=== PATIENT | female | born 1995 | race Hispanic/Latino ===

== ENCOUNTER 2024-06-11 22:35 | Emergency (ER) | payer BC ==
[~2024-06-11] VITALS: Ht 167.6 cm; Wt 2.4 kg
[2024-06-11 23:52] LABS: BASOPHILS # (AUTO) 0.02 K/uL (0.00-0.20); BASOPHILS % (AUTO) 0.2 % (0.0-5.0); EOSINOPHILS # (AUTO) 0.12 K/uL (0.00-0.70); EOSINOPHILS % (AUTO) 1.5 % (0.0-8.0); HEMATOCRIT 35.5 % (36-48); IMMATURE GRANULOCYTE ABSOLUTE 0.02 K/uL (0-1); LYMPHOCYTES # (AUTO) 1.9 K/uL (1.0-4.8); LYMPHOCYTES % (AUTO) 23.7 % (21.0-51.0); MEAN CORPUSCULAR HEMOGLOBIN 29.4 pg (27.0-33.0); MEAN CORPUSCULAR HGB CONC 32.4 g/dL (32.0-36.0); MEAN CORPUSCULAR VOLUME 90.8 fL (79-99); MONOCYTES # (AUTO) 0.5 K/uL (0.1-1.0); MONOCYTES % (AUTO) 6.2 % (3.0-13.0); NEUTROPHILS # (AUTO) 5.6 K/uL (1.8-7.7); NEUTROPHILS % (AUTO) 68.2 % (40.0-77.0); PLATELET COUNT (AUTO) 270 K/uL (130-400); RED BLOOD CELL COUNT(AUTO) 3.91 MIL/uL (4.00-5.50); RED CELL DISTRIBUTION WIDTH 13.4 % (11.0-15.5); WHITE BLOOD COUNT (AUTO) 8.2 K/uL (4.8-10.8)
[2024-06-12 00:01] LABS: CREATININE 0.8 mg/dL (0.5-1.0); POTASSIUM 3.4 mmol/L (3.5-5.1)
[2024-06-12 00:06] LABS: MAGNESIUM 1.9 mg/dL (1.80-2.40)
[2024-06-12] MEDS: hydrOXYzine 25 MG TABLET PO ONE (00:16)
[2024-06-12] MEDS: 0.9%NACL 1000ML 1,000 ML IV ONE (00:17)
[2024-06-12] MEDS: PoTASSium BIcarbonate/CIT AC 25 MEQ TABLET.EFF PO ONE (00:45)
[2024-06-12] MEDS ORDERED: HYDR-3421 PO (02:13)
--- NOTE | 2024-06-12 02:14 | ERN ---
ED Note History of Present Illness Stated Complaint: PALPITATIONS Chief Complaint: Rapid Heart Rate Time Seen by MD: 22:39 Time Seen by Midlevel: 22:39 Dictation: The patient is a 29-year-old female with no medical history who presents to the emergency department complaints palpitations. Patient reports he has been getting palpitations steady for a year. Was seen at another hospital where she had cardiac monitoring but showed no pathology. Patient denies any chest pain or shortness of breath. Reports some anxiety. No other complaints reported. Allergies: Coded Allergies: No Known Drug Intolerances (Unverified Allergy, Unknown, 06/11/24) Home Meds Active Scripts Hydroxyzine HCl (Hydroxyzine HCl) 25 Mg Tablet, 1 TAB PO TID for anxiety for 10 Days, #30 TAB 0 Refills Prov:JUSTINE GOMES SOCIAL PSYCHOLOGIST 06/12/24 Past Medical History Past Medical History: No Pertinent History Surgical History: None RN Note Reviewed/Agreed w/PFSH: Yes Review of System Dictation Constitutional: Negative for fever,chills, and weight loss Eyes: Negative for injury, pain,redness, and discharge ENT: Negative for injury,pain or swelling Cardiovascular: Negative for chest pain, and edema positive for palpitations Respiratory: Negative for shortness of breath, cough, and wheezing, Abdomen/GI: Negative for abdominal pain, nausea, vomiting, diarrhea, and constipation Back: Negative for injury and pain : Negative for injury, bleeding and discharge MS/Extremity: Negative for injury and deformity Skin: Negative for rash, and discoloration Neuro: Negative for headache, weakness, numbness, tingling, and seizure Psych: Negative for suicide ideation, homicidal ideation, and hallucinations Initial Vital Sign VS Vital Signs Date Time Temp Pulse Resp B/P (MAP) Pulse Ox O2 Delivery O2 Flow Rate FiO2 06/11/24 22:39 98.4 107 18 141/93 97 Physical Exam Dictation Vital Signs reviewed General Appearance: Alert, oriented x 3, no acute distress, well developed, nourished. Head and Face: non-traumatic. Eyes: PERRL, pink conjunctivas, eyelid no trauma, anterior chamber with arcus senilis. Ears: Pinnas intact and no signs of trauma or erythema ear canals clear and no discharge TM no erythema Nose: No discharge, no bleeding. Oropharynx: Mouth normal, tongue pink. pharynx clear,no erythema, tonsils no exudates, no abscesses noted, mucous membrane moist Neck: Supple, non-tender, no thyromegaly, no masses, no JVD, no bruits Breast:Deferred Chest:No tenderness, no crepitus, no paradoxical movement, no retractions Lungs:Clear, well-ventilated, symmetric, no rales, no wheezing, no rhonchi, no stridor, good breath sounds bilaterally Heart: Regular rate, regular rhythm, no murmur, no gallops Vascular: no peripheral edema, Abdomen: Soft, positive bowel sounds, nondistended, no guarding, nontender, no rebound, no masses no hepatomegaly, no splenomegaly, no Amaral's sign, no hernias. Rectal: Deferred Genital: Deferred Neurological: Normal speech, motor function intact, sensory function intact Musculoskeletal: Neck nontender, full range of motion, back nontender, full range of motion, Extremities: nontender, full range of motion Skin: Color pink, dry, no turgor, no rash, no lacerations, no abrasions, no co ntusions. Lymphatic: Deferred Results (Laboratory/Radiology) Laboratory/Radiology Laboratory Tests Test 06/11/24 23:27 White Blood Count 8.2 K/uL (4.8-10.8) Red Blood Count 3.91 MIL/uL (4.00-5.50) L Hemoglobin 11.5 g/dL (12.0-16.0) L Hematocrit 35.5 % (36-48) L Mean Corpuscular Volume 90.8 fL (79-99) Mean Corpuscular Hemoglobin 29.4 pg (27.0-33.0) Mean Corpuscular Hemoglobin Concent 32.4 g/dL (32.0-36.0) Red Cell Distribution Width 13.4 % (11.0-15.5) Platelet Count 270 K/uL (130-400) Mean Platelet Volume 9.9 fL (7.5-10.5) Immature Granulocyte % (Auto) 0.2 % (0-1) Neutrophils (%) (Auto) 68.2 % (40.0-77.0) Lymphocytes (%) (Auto) 23.7 % (21.0-51.0) Monocytes (%) (Auto) 6.2 % (3.0-13.0) Eosinophils (%) (Auto) 1.5 % (0.0-8.0) Basophils (%) (Auto) 0.2 % (0.0-5.0) Neutrophils # (Auto) 5.6 K/uL (1.8-7.7) Lymphocytes # (Auto) 1.9 K/uL (1.0-4.8) Monocytes # (Auto) 0.5 K/uL (0.1-1.0) Eosinophils # (Auto) 0.12 K/uL (0.00-0.70) Basophils # (Auto) 0.02 K/uL (0.00-0.20) Absolute Immature Granulocyte (auto 0.02 K/uL (0-1) Nucleated Red Blood Cells 0.0 % (0.0-0.19) Sodium Level 142 mmol/L (136-145) Potassium Level 3.4 mmol/L (3.5-5.1) L Chloride Level 104 mmol/L (101-111) Carbon Dioxide Level 31 mmol/L (21-32) Blood Urea Nitrogen 8 mg/dL (7-18) Creatinine 0.8 mg/dL (0.5-1.0) Glomerular Filtration Rate Calc 102 mL/min (>90) Random Glucose 102 mg/dL (70-105) Total Calcium 8.7 mg/dL (8.5-10.1) Magnesium Level 1.90 mg/dL (1.80-2.40) Total Creatine Kinase 56 U/L (21-232) Troponin I High Sensitivity 35 ng/L (4-50) Labs Reviewed?: Yes EKG: (+) rhythm (Sinus rhythm) EKG Comment: Date:06/11/2024 Time:2244 Ventricular rate:97 [place] interval:139 QRS duration:85 QT/QTc:335 EKG interpretation: Sinus rhythm Reviewed by ED Attending no STEMI ED Course ED Course Orders Procedure Category Date Status Time Cbc With Differential LAB 06/11/24 Complete 22:54 Chest 1vw RAD 06/11/24 Taken 22:54 12 Lead Ekg Tracing- EKG 06/11/24 Logged Technical 22:54 0.9%Nacl 1000ml (Ns PHA 06/11/24 Complete 1000ml) 23:00 Magnesium LAB 06/11/24 Complete 22:54 Creatine Kinase, Total LAB 06/11/24 Complete 22:54 Troponin I High LAB 06/11/24 Complete Sensitivity 22:54 Urinalysis Profile LAB 06/11/24 Logged 22:54 Basic Metabolic Panel LAB 06/11/24 Complete 22:54 Drug Screen Urine LAB 06/11/24 Logged 22:54 ,Urine Test LAB 06/11/24 Logged 22:54 Hydroxyzine 25mg Tab PHA 06/11/24 Complete (Atarax 25mg Tab) 23:00 Potassium Bicarb/Cit PHA 06/12/24 Complete Ac 25meq (K-Lyte Ta 00:30 Current Medications Medications (Trade) Dose Ordered Sig/Josue Route PRN Reason Start Time Stop Time Status Last Admin Dose Admin Hydroxyzine HCl (ATArax 25MG TAB) 25 mg ONCE ONCE PO 06/11/24 23:00 06/11/24 23:01 DC 06/12/24 00:16 Potassium Bicarbonate (K-Lyte Tablet Eff 25 Meq Tablet.eff) 25 meq ONCE ONCE PO 06/12/24 00:30 06/12/24 00:31 DC 06/12/24 00:45 Sodium Chloride 1,000 ml @ 0 mls/hr ONCE ONCE IV 06/11/24 23:00 06/11/24 23:01 DC 06/12/24 00:17 Vital Signs Date Time Temp Pulse Resp B/P (MAP) Pulse Ox O2 Delivery O2 Flow Rate FiO2 06/11/24 22:39 98.4 107 18 141/93 97 Medical Decision Making MDM The patient is a 29-year-old female with no medical history who presents to the emergency department complaints palpitations. Patient reports he has been getting palpitations steady for a year. Was seen at another hospital where she had cardiac monitoring but showed no pathology. Patient denies any chest pain or shortness of breath. Reports some anxiety. No other complaints reported. CBC showed no leukocytosis, mild normocytic anemia, chemistry showed mild hy pokalemia, negative troponin, normal renal function, EKGs sinus rhythm no arrhythmias. Patient in no acute distress will be discharged to follow up with PCP. Differential diagnosis: Tachyarrhythmia, dehydration, anxiety, ACS Need for hospitalization: Patient does not meet criteria for hospitalization. There are no social concerns with this patient. DX & DISP Disposition: Discharge Departure Impression: Primary Impression: Palpitations Additional Impressions: Anxiety, Anemia, Hypokalemia Condition: Stable Scripts Hydroxyzine HCl (Hydroxyzine HCl) 25 Mg Tablet 1 TAB PO TID for anxiety for 10 Days, #30 TAB 0 Refills Prov: JUSTINE GOMES 06/12/24 Additional Instructions: FOLLOW-UP WITH PRIMARY CARE PROVIDER IN 1 TO 2 DAYS. TAKE MEDICATIONS DIRECTED HERE IN THE EMERGENCY ROOM. OKAY TO CONTINUE HOME MEDICATIONS UNLESS OTHERWISE DISCUSSED DURING YOUR VISIT IN THE EMERGENCY ROOM TODAY. RETURN TO YOUR NEAREST EMERGENCY ROOM IF SYMPTOMS WORSEN OR IF THERE IS NO IMPROVEMENT. CALL 911 IF YOU NEED IMMEDIATE ASSISTANCE. TAKE TYLENOL OR MOTRIN [id number] NEEDED AND IF NO CONTRAINDICATIONS ARE PRESENT. INCREASE ORAL HYDRATION. A WOUND CULTURE OR URINE CULTURE WAS ORDERED HERE IN THE EMERGENCY ROOM DEPARTMENT PLEASE FOLLOW-UP WITH PRIMARY CARE PROVIDER AND ADVISE THEM TO GET REPEAT PORTS FROM OUR FACILITY. IF YOU HAD ANY WAYNE WRAP/SPLINTS THAT WERE APPLIED HERE, PLEASE DO NOT REMOVE THEM UNTIL YOU SEE YOUR PRIMARY CARE OR SPECIALTY. Referrals: SELF,REFERRAL (PCP) Time of Disposition: 02:12 I have reviewed the case, and I agree with, Diagnosis and Plan JUSTINE GOMES Jun 12, 2024 02:14
[2024-06-12 02:19] VITALS: BP 125/66; PULSE 90; RESP 18; TEMP 98.8; O2SAT 99
--- NOTE | 2024-06-12 07:46 | EKG ---
[facility] Test Date: 2024-06-11 Test Time: 22:44:25 Pat Name: ROCAEL GARCIA Department: [facility] Room: Gender: F Manager Marketing Communications: [id number] : 1995 Requested By: JUSTINE GOMES Order Number: [id number] Reading MD: Tisha Guillen Measurements Intervals [place] Rate: 97 P: 48 FL: 139 QRS: 30 QRSD: 85 T: 27 QT: 335 QTc: 427 Interpretive Statements Sinus rhythm No previous ECG available for comparison Electronically Signed On 06-12-2024 17:03:10 SPINE SPECIALIST by Tisha Guillen Please click the below link to view image of tracing.
--- NOTE | 2024-06-12 12:57 | HMCIMG ---
CHEST 1VW HISTORY: Chest pain COMPARISON: None FINDINGS: A frontal projection of the chest was obtained. No acute pulmonary infiltrates is seen. The heart is borderline enlarged. Prominent interstitial markings are seen. No evidence of aortic calcification is seen. IMPRESSION: 1. No acute pulmonary infiltrate is seen.
== END 2024-06-12 02:29 | disposition home or self-care (01) ==
LOC: EDH 22:35
DX: F41.9 Anxiety disorder, unspecified (principal); R00.2 Palpitations; E87.6 Hypokalemia; D64.9 Anemia, unspecified
CPT/HCPCS: 99284; 71045; 82550; 83735; 84484; 80048; 85025; 36415; 93005; 96360; J7030

== ENCOUNTER 2025-03-29 13:40 | Emergency (ER) | payer BC ==
[~2025-03-29] VITALS: Ht 167.6 cm; Wt 147.9 kg
[~2025-03-29 13:40] MED LIST: HYDR-3421 PO
[2025-03-29 13:45] VITALS: BP 146/91; PULSE 139; RESP 18; TEMP 98.2
--- NOTE | 2025-03-29 13:48 | NUR ---
DOG BITE @ [address] [place] [address], [place] [place] [address], PT REQUESTING NO POLICE REPORT
--- NOTE | 2025-03-29 13:54 | NUR ---
CLLED [place] [employer] AND SPOKE TO KATHY, TOOK COMPLAIN AND STATES WILL SEND AN OFFICER HERE BUT MAY TAKE A LITTLE LONGER BECAUSE THERE IS SHIFT CHANGE
--- NOTE | 2025-03-29 14:08 | ERN ---
General Chief Complaint: Animal Bite Stated Complaint: DOG BITE Time Seen by MD: 13:46 Source: patient History of Present Illness Initial Comments PATIENT IS A 30-YEAR-OLD FEMALE COMING IN COMPLAINING OF ANIMAL BITE TO THE RIGHT HAND. PER PATIENT SHE WAS BIT BY A STRAY IN HER RIGHT HAND MULTIPLE PUNCTURE WOUNDS WHAT RIGHT HAND ARE PRESENT. Allergies: Coded Allergies: No Known Drug Allergies (Unverified Allergy, Unknown, 03/29/25) No Known Drug Intolerances (Unverified Allergy, Unknown, 06/11/24) Home Meds Active Scripts Hydroxyzine HCl (Hydroxyzine HCl) 25 Mg Tablet, 1 TAB PO TID for anxiety for 10 Days, #30 TAB 0 Refills Prov:JUSTINE GOMES COMPRESSOR STATION OPERATOR 06/12/24 Past Medical History Past Medical History: Anxiety Past Surgical History: None ROS Dictation CONSTITUTIONAL: NO CHILLS, NO FEVER, NO WEAKNESS, NO DIAPHORESIS, NO MALAISE. HEAD/FACE: NO SIGNS OF TRAUMA. EENT: NO EYE PAIN, NO BLURRED VISION, NO TEARING, NO DOUBLE VISION, NO EAR PAIN, NO EAR DISCHARGE, NO NOSE PAIN, NO NASAL CONGESTION, NO THROAT PAIN, NO THROAT SWELLING, NO MOUTH PAIN. RESPIRATORY: NO COUGH, NO ORTHOPNEA, NO SOB, NO STRIDOR, NO WHEEZING. CARDIOVASCULAR: NO CHEST PAIN, NO EDEMA, NO PALPITATIONS, NO SYNCOPE. GASTROINTESTINAL/ABDOMINAL: NO ABDOMINAL PAIN, NO CONSTIPATION, NO DIARRHEA, NO NAUSEA, NO VOMITING. GENITOURINARY: NO ABNORMAL DISCHARGE, NO DYSURIA, NO FREQUENT URINATION, NO HEMATURIA. NO COMPLAINTS OF PAIN IN THE GENITALS. MUSCULOSKELETAL: NO BACK PAIN, NO GOUT, NO JOINT PAIN, NO JOINT SWELLING, NO MUSCLE PAIN, NO MUSCLE STIFFNESS, NO NECK PAIN. INTEGUMENTARY: NO CHANGE IN COLOR, NO CHANGE IN HAIR/NAILS, NO DRYNESS, LESION, NO LUMPS, NO RASH. NEUROLOGICAL/PSYCH: NO ANXIETY, NOT DEPRESSED, NO EMOTIONAL PROBLEM, NO HEADACHE, NO NUMBNESS, NO PRE-EXISTING DEFICIT, NO HISTORY OF SEIZURES, NO TREMORS, NO WEAKNESS. HEMATOLOGIC/LYMPHATIC: NOT ANEMIC, NO HISTORY OF BLOOD CLOTS, NO APPARENT BLEEDING, NO BRUISING, GLANDS NOT SWOLLEN. ALL SYSTEMS NEGATIVE, EXCEPT NOTED. Physical Exam Physical Exam Dictation VITAL SIGNS: REVIEWED. GENERAL APPEARANCE: ALERT, ORIENTED X3, NO ACUTE DISTRESS, OBESE. HEAD AND FACE: NON-TRAUMATIC. EYES: PERRL, PINK CONJUNCTIVAS, EYELID NO TRAUMA, ANTERIOR CHAMBER CLEAR. EARS: PINNAS INTACT AND NO SIGNS OF TRAUMA OR ERYTHEMA. EAR CANALS CLEAR AND NO DISCHARGE. TMS NO ERYTHEMA. NOSE: NO DISCHARGE, NO BLEEDING. OROPHARYNX: MOUTH NORMAL, TEETH NO CARIES, TONGUE PINK. PHARYNX CLEAR, NO ERYTHEMA. TONSILS NO EXUDATES, NO ABSCESSES NOTED. MUCOUS MEMBRANE MOIST. NECK: SUPPLE, NON-TENDER, NO THYROMEGALY, NO MASSES, NO JVD, NO BRUITS. BREAST: DEFERRED. CHEST: NO TENDERNESS, NO CREPITUS, NO PARADOXICAL MOVEMENT, NO RETRACTIONS. LUNGS: CLEAR, WELL-VENTILATED, SYMMETRIC, NO RALES, NO WHEEZING, NO RHONCHI, NO STRIDOR, GOOD BREATH SOUNDS BILATERALLY. HEART: REGULAR RATE, REGULAR RHYTHM, NO MURMUR, NO GALLOPS. VASCULAR: NO PERIPHERAL EDEMA. ABDOMEN: SOFT, POSITIVE BOWEL SOUNDS, NONDISTENDED, NO GUARDING, NONTENDER, NO REBOUND, NO MASSES NO HEPATOMEGALY, NO SPLENOMEGALY, NO GUTIERREZ'S SIGN, NO HERNIAS. RECTAL: DEFERRED. GENITAL: DEFERRED. NEUROLOGICAL: NORMAL SPEECH, GROSS MOTOR FUNCTION INTACT, GROSS SENSORY FUNCTION INTACT. MUSCULOSKELETAL: NECK NONTENDER, FULL RANGE OF MOTION, BACK NONTENDER, FULL R FIDELIA OF MOTION. EXTREMITIES: NONTENDER, FULL RANGE OF MOTION. SKIN: COLOR PINK, DRY, NO TURGOR, NO RASH, RIGHT HAND PUNCTURE WOUNDS, NO ABRASIONS, NO CONTUSIONS. LYMPHATICS: DEFERRED. Results Laboratory and Microbiology Lab and Micro Result Laboratory Tests Test 03/29/25 14:15 Serum Test, Qualitative NEGATIVE (NEGATIVE) Labs Reviewed?: Yes EKG/XRAY/US/CT/MRI X-RAY Comment [place] [address] [place] [id number] IMAGING REPORT Signed PATIENT: ROCAEL GARCIA MR#: [id number] : 1995 SEX: F AGE: 30 LOCATION: [facility] ORDER [id number] STATUS: REG REPORT#: [id number] SERVICE [id number] REASON: ANIM,AL BITE ORDERING PHYSICIAN: HOA ROBERTS MD PROCEDURE: HAND 3V RT - HAND 3+VWS RT EXAM: CR right Hand, 4 View. CLINICAL HISTORY: ANIM,AL BITE COMPARISON: None provided. FINDINGS: BONES: No acute osseous pathology evident. JOINTS: No evidence of dislocation. The joint spaces are normal. SOFT TISSUES: Soft tissue edema and laceration within the volar aspect of the distal forearm. No radiopaque foreign body is identified. IMPRESSION: 1. No acute osseous injury. 2. Soft tissue edema and laceration within the volar aspect of the distal forearm, without radiopaque foreign body. /[place] DICTATED BY: MAYNOR BAIRES Jr., MD DATE: 03/29/251542 ELECTRONICALLY SIGNED BY: MAYNOR BAIRES Jr., MD DATE: 03/29/251542 MDM MDM: DIFFERENTIAL DIAGNOSIS: WOUND EVALUATION, DOG BITE RATIONALE: TESTS CONSIDERED AND ORDERED SECONDARY TO SHARED DECISION MAKING INCLUDE: PREVIOUS OUTSIDE RECORDS REVIEWED: OLD ER VISITS. RISK OF COMPLICATION AND/OR MORBIDITY OR MORTALITY OF PATIENT MANAGEMENT: NONE MEDICATIONS-PER MEDICATION RECONCILIATION NEED FOR HOSPITALIZATION: PATIENT DOES NOT MEET CRITERIA FOR HOSPITALIZATION. NEED FOR EMERGENCY MAJOR/MINOR SURGERY: NO PATIENT IS A 30-YEAR-OLD FEMALE COMING IN TO BE EVALUATED FOR RIGHT HAND DOG BITE. ANIMAL CONTROL NOTIFIED INCIDENT 20. TWENTY-FIVE IS A 540 BY OFFICER SIGNS. WOUND WAS EVALUATED THOROUGHLY IRRIGATED COVERED WITH TOPICAL ANTIBIOTICS X-RAY DID NOT DISCLOSE ACUTE FINDINGS. PATIENT WILL BE DISCHARGED IN STABLE CONDITION WITH A DIAGNOSIS OF DOG BITE TO THE HAND. ANTIBIOTICS WILL BE PROVIDED FOR HOME USE. ED Course Orders Procedure Category Date Status Time Testing, LAB 03/29/25 Complete Serum Hcg 13:49 Hand 3+Vws Rt RAD 03/29/25 Resulted 13:49 Tetanus,Diphtheria PHA 03/29/25 Complete Tox [Adult] (Diphther 14:00 Ceftriaxone 1g Vial PHA 03/29/25 Complete (Rocephine 1g Inj) 14:00 Current Medications Medications (Trade) Dose Ordered Sig/Josue Route PRN Reason Start Time Stop Time Status Last Admin Dose Admin Ceftriaxone Sodium (ROCEphine 1G INJ) 1 gm ONCE ONCE IM 03/29/25 14:00 03/29/25 14:01 DC 03/29/25 14:09 Tetanus/ Diphtheria Toxoids Adsorbed (DiphthERIA-teTANUS TOXOID [ADULT]/ DECAVAC) 0.5 ml ONCE ONCE IM 03/29/25 14:00 03/29/25 14:01 DC 03/29/25 14:09 Vital Signs Date Time Temp Pulse Resp B/P (MAP) Pulse Ox O2 Delivery O2 Flow Rate FiO2 03/29/25 13:45 98.2 139 18 146/91 98 DX & DISP Disposition: Discharge Departure Impression: Primary Impression: Dog bite of dorsum of hand Condition: Stable Scripts Cephalexin Monohydrate (Keflex) 500 Mg Cap 1 CAP PO BID for 10 Days, #20 CAP 0 Refills Prov: HOA ROBERTS MD 03/29/25 Additional Instructions: FOLLOW-UP WITH PRIMARY CARE PROVIDER IN 1 TO 2 DAYS. TAKE MEDICATIONS DIRECTED HERE IN THE EMERGENCY ROOM. OKAY TO CONTINUE HOME MEDICATIONS UNLESS OTHERWISE DISCUSSED DURING YOUR VISIT IN THE EMERGENCY ROOM TODAY. RETURN TO YOUR NEAREST EMERGENCY ROOM IF SYMPTOMS WORSEN OR IF THERE IS NO IMPROVEMENT. CALL 911 IF YOU NEED IMMEDIATE ASSISTANCE. TAKE TYLENOL UCBG-LVP-XZYESTL NEEDED AND IF NO CONTRAINDICATIONS ARE PRESENT. INCREASE ORAL HYDRATION. A WOUND CULTURE OR URINE CULTURE WAS ORDERED HERE IN THE EMERGENCY ROOM DEPARTMENT PLEASE FOLLOW-UP WITH PRIMARY CARE PROVIDER AND ADVISE THEM TO GET REPORTS FROM OUR FACILITY. IF YOU HAD ANY WAYNE WRAP/SPLINTS THAT WERE APPLIED HERE, PLEASE DO NOT REMOVE THEM UNTIL YOU SEE YOUR PRIMARY CARE OR SPECIALTY. REFERRALS: Referrals: SELF,REFERRAL (PCP) RODERICK LANDIN MD Time of Disposition: 15:22 HOA ROBERTS MD Mar 29, 2025 14:08
--- NOTE | 2025-03-29 14:45 | HMCIMG ---
EXAM: CR right Hand, 4 View. CLINICAL HISTORY: ANIM,AL BITE COMPARISON: None provided. FINDINGS: BONES: No acute osseous pathology evident. JOINTS: No evidence of dislocation. The joint spaces are normal. SOFT TISSUES: Soft tissue edema and laceration within the volar aspect of the distal forearm. No radiopaque foreign body is identified. IMPRESSION: 1. No acute osseous injury. 2. Soft tissue edema and laceration within the volar aspect of the distal forearm, without radiopaque foreign body. /[place]
[2025-03-29] MEDS ORDERED: CEPH500B PO (15:23)
--- NOTE | 2025-03-29 15:29 | NUR ---
VISITED BY [place] [employer]
[2025-03-29] MEDS: NEOMY SULF/BACITRA/POLYMYXIN B 1 EACH PACKET TP ONE (15:35)
== END 2025-03-29 15:38 | disposition home or self-care (01) ==
LOC: EDH 13:40
DX: S61.431A Puncture wound without foreign body of right hand, initial encounter (principal); F41.9 Anxiety disorder, unspecified; W54.0XXA Bitten by dog, initial encounter; Y93.89 Activity, other specified; Y92.89 Other specified places as the place of occurrence of the external cause; Y99.8 Other external cause status
CPT/HCPCS: 99284; 84703; 36415; 90714; 73130; 96372; 90471; J0696